=== PATIENT | female | born 1995 | race African-American/Black ===

== ENCOUNTER 2018-03-07 00:12 | Emergency (ER) | payer OTHER, MEDICAID ==
[~2018-03-07] VITALS: Ht 165.1 cm; Wt 79.0 kg
[2018-03-07 00:16] VITALS: BP 107/69
== END 2018-03-07 02:01 | disposition left against medical advice (07) ==
LOC: ER 00:12
DX: Z53.21 Procedure and treatment not carried out due to patient leaving prior to being seen by health care provider (principal)